=== PATIENT | male | born 1975 | race Caucasian/White ===

== ENCOUNTER 2024-07-19 10:23 | Emergency (ER) | payer BC ==
--- OUTSIDE RECORDS SUMMARY | 2024-07-19 10:27 | XMS REPORT | Continuity of Care Document ---
Author Name Unknown Address [address] [facility]. [address] [place] [address] [facility] thconnect Address [address] [facility] [address] [place] [address] Care Team Providers Care Stripper Latex Name Role Phone Juan David FREIGHT CLERK, Susannah Attending Clinician Unavailab tomas Fall FREIGHT CLERK, Susannah Admitting Clinician Ag marin Payers Payer Name Policy Type Policy Number Effective Date Expirati on Date Source [facility] 53 [id number] 2022 00:00:00 [facility] Problems Condition Name Condition Details Condition Category Status Onset Date Resolution Date Last Treatment Date Treating Clinician Comments Source 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 Ordering Clinician Indication Dosage Frequency Signature (SIG) Comments Components Source Tadalafil 5 MG Tadalafil 5 MG 01-18 00:00: 00 No 1{table t_as_ne eded} QD Tadalafil 5 MG Testosteron e Cypionate 100 MG/ML Testosteron e Cypionate 100 MG/ML No Testostero ne Cypionate 100 MG/ML Vital Signs Vital Name Observation Time Observation Value Comments S ource height 2024-01-19 08:30:00 72 [in_i] [facility] heart rate 2024-01-19 08:30:00 75 /min [facility] bmi 2024-01-19 08:30:00 34.23 kg/m2 [facility] respiratory rate 2024-01-19 08:30:00 18 /min [facility] oximetry 2024-01-19 08:30:00 93 % [facility] blood pressure systolic 2024-01-19 08:30:00 128 mm[Hg] [facility] blood pressure diastolic 2024-01-19 08:30:00 87 mm[Hg] [facility] weight 2024-01-19 08:30:00 252.4 [lb_av] [facility] En[facility]ters Start Date/Time End Date/Time Encounter Type Admission Type Attending Clinicians [facility] Facility Care Department Encounter ID Source 2024-01-19 08:32:01 Outpatient Juan David TAM, Susannah BPNET BPNET [id number] [facility] 2024-01-19 00:00:00 2024-01-19 00:00:00 Office Visit, Jone PtRonal, Level 4 BPNET BPNET [id number] [facility]
[2024-07-19] MEDS ORDERED: ONDANSETRON 4 MG/2 ML VIAL ONE (11:23)
[2024-07-19] MEDS ORDERED: NA CHLORIDE 0.9% 1,000 ML ONE ×2 (11:23→12:21)
[2024-07-19] MEDS ORDERED: MORPHINE 4 MG/ML SYR ONE ×2 (11:23→12:21)
[2024-07-19 11:36] LABS: Absolute Eosinophils 0.1 K/uL (0-0.5); Absolute Lymphocytes (CBC) 1.2 K/uL (0.7-4.9); Absolute Monocytes 0.5 K/uL (0.1-1.3); Absolute Neutrophil 4.4 K/uL (1.8-8.0); Basophils % 0.6 % (0-1.3); Eosinophils % 1.5 % (0-4.4); Hematocrit 50.9 % (39.6-49.0); Hemoglobin 17.8 g/dL (13.6-17.9); Lymphocytes % 19.8 % (15.3-44.8); MCH 31.6 pg (27.0-35.0); MPV 7.6 fL (7.6-11.3); Monocytes % 7.6 % (3.3-12.3); Neutrophils % 70.5 % (41.7-73.7); Nucleated Red Blood Cells % 0.1 % (0-0); Platelets 249 thou/uL (152-406); RBC Red Blood Cell Count 5.65 M/uL (4.33-5.43)
[2024-07-19 11:37] LABS: Specific Gravity 1.014 (1.005-1.030); Sqamous Epithelial <5 /HPF (None Seen); Urine Bacteria None Seen /HPF (<20); Urine Bilirubin NEGATIVE (Negative); Urine Blood 1+ (Negative); Urine Clarity Extremely Turbid (Clear); Urine Color Light-Yellow (Yellow); Urine Culture Reflex Order NOT NEEDED; Urine Glucose NEGATIVE (Negative); Urine Ketones NEGATIVE (Negative); Urine Microscopic Reflex YN ORDER UMIC; Urine Nitrite NEGATIVE (Negative); Urine Protein NEGATIVE (Negative); Urine RBC 21-50 /HPF (None Seen); Urine Urobilinogen Normal (Normal); Urine WBC <5 /HPF (<5)
--- NOTE | 2024-07-19 11:42 | RAD REPORT ---
EXAMINATION: CT ABDOMEN AND PELVIS WITH CONTRAST CLINICAL INDICATION: ABD PAIN TECHNIQUE: CT abdomen and pelvis was performed, after the administration of IV contrast, as per [facility] protocol. Axial, sagittal and coronal reconstructions were obtained. One or more of the following dose reduction techniques were used: Automated exposure control, adjustment of the mA and k V according to patient size, and iterative reconstruction. Unless otherwise specified, incidental findings do not require dedicated imaging follow-up. COMPARISON: No prior exam. FINDINGS: LOWER CHEST: The visualized lung bases are clear. LIVER: Mild fatty liver is present. No focal lesion or biliary dilatation is seen. Grossly unremark able gallbladder. SPLEEN: Normal size. No focal lesion. PANCREAS: No mass, ductal dilation, or elie-pancreatic fluid. ADRENALS: Normal; no mass. KIDNEYS: There is a 5 mm stone proximal left ureter resulting in mild left hydronephrosis. Additional 2 mm stone superior calyx left kidney. GASTROINTESTINAL TRACT: No evidence of free air, significant intra-abdominal free fluid, bowel obstru ction or abscess. APPENDIX: Normal appendix. LYMPH NODES: No lymphadenopathy. MUSCULOSKELETAL: No acute or suspicious osseous abnormality. ADDITIONAL FINDINGS: None. IMPRESSION: 5 mm stone proximal left kidney resulting in mild left hydronephrosis. Additional 2 mm stone superior calyx left kidney.
[2024-07-19] MEDS ORDERED: KETOROLAC 30 MG/ML INJ ONE (11:52)
[2024-07-19 11:53] LABS: Albumin 3.9 g/dL (3.4-5.0); Anion Gap 7.4 mEq/L (5.0-15.0); Bilirubin Total 0.5 mg/dL (0.2-1.0); Globulin 3.9 g/dL (2.3-3.5); Potassium 4.4 mEq/L (3.5-5.1); Protein, Total 7.8 g/dL (6.4-8.2)
--- NOTE | 2024-07-19 14:44 | ER ---
Nurse's Notes [facility] Name: Jim Ballesteros Age: 49 yrs Sex: Male : 1975 Arrival Date: 07/19/2024 Time: 10:23 Bed 12 Private MD: Diagnosis: Calculus of kidney Presentation: 07/19 10:52 Chief complaint: Patient states: he started having left lower abdominal/flank pain that ap3 started last night. patient currently rates his pain as an 8/10 on the pain scale. patient denies any nausea or vomiting and reports normal bowel habits. Coronavirus screen: At this time, the client does not indicate any symptoms associated with coronavirus-19. Ebola Screen: No symptoms or risks identified at this time. Initial Sepsis Screen: Does the patient meet any 2 criteria? HR > 90 bpm. Does the patient have a suspected source of infection? No. Patient's initial sepsis screen is negative. Risk Assessment: Do you want to hurt yourself or someone else? Patient reports no desire to harm self or others. Onset of symptoms was July 18, 2024. 10:52 Method Of Arrival: Ambulatory ap3 10:52 Acuity: GUCCI 3 ap3 Triage Assessment: 10:55 General: Appears uncomfortable, Behavior is calm, cooperative, appropriate for age. ap3 Pain: Complains of pain in left lower quadrant Pain currently is 8 out of 10 on a pain scale. Neuro: Level of Consciousness is awake, alert, obeys commands, Oriented to person, place, time, situation, Appropriate for age. Cardiovascular: Patient's skin is warm and dry. Respiratory: Airway is patent Respiratory effort is even, unlabored, Respiratory pattern is regular, symmetrical. GI: Reports lower abdominal pain, gaseousness. Historical: - Allergies: 10:54 No Known Allergies; ap3 - Home Meds: 10:54 None [Active]; ap3 - PMHx: 10:54 None; ap3 - Immunization history:: Client reports having NOT received the Covid vaccine. Last tetanus immunization: not immunized Flu vaccine is not up to date. - Infectious Disease History:: Denies. - Social history:: Smoking status: Patient denies any tobacco usage or history of. Screenin:55 [facility] ED Fall Risk Assessment (Adult) History of falling in the last 3 months, ap3 including since admission No falls in past 3 months (0 pts) Confusion or Disorientation No (0 pts) Intoxicated or Sedated No (0 pts) Impaired Gait No (0 pts) Mobility Assist Device Used No (0 pt) Altered Elimination No (0 pt) Score/Fall Risk Level 0 - 2 = Low Risk Oriented to surroundings, Maintained a safe environment, Educated pt \T\ family on fall prevention, incl call for assistance when getting out of bed, Assessed \T\ reinforced patient's understanding of fall precautions, Hourly rounding (assess needs \T\ fall precautionary measures) done, Used ambulatory aids as needed (educated on \T\ assisted with), Used gait belt as appropriate. Abuse screen: Denies threats or abuse. Nutritional screening: No deficits noted. Tuberculosis screening: No symptoms or risk factors identified. Assessment: 11:54 General: Appears in no apparent distress. uncomfortable, Behavior is calm, cooperative, jl7 appropriate for age. Pain: Complains of pain in left lower quadrant Pain currently is 8 out of 10 on a pain scale. at worst was 10 out of 10 on a pain scale. Quality of pain is described as sharp, Pain began 1 day ago. Is continuous. Neuro: Level of Consciousness is awake, alert, obeys commands, Oriented to person, place, time, situation. Cardiovascular: Patient's skin is warm and dry. Respiratory: Airway is patent Respiratory effort is even, unlabored, Respiratory pattern is regular, symmetrical. GI: Abdomen is round Bowel sounds present X 4 quads. Abd is soft Patient currently denies diarrhea, nausea, vomiting. : Denies burning with urination, pain with urination. Derm: Skin is pink, warm \T\ dry. 13:06 Reassessment: Patient appears in no apparent distress at this time. Patient and/or jl7 family updated on plan of care and expected duration. Pain level reassessed. Patient is alert, oriented x 3, equal unlabored respirations, skin warm/dry/pink. reports pain 5/10 at this time Patient states symptoms have improved. Vital Signs: 10:52 BP 151 / 96; Pulse 116; Resp 18; Temp 98.6(O); Pulse Ox 98% on R/A; Weight 113.4 kg; ap3 Height 6 ft. 0 in. ; Pain 8/10; 11:59 Pain 7/10; jl7 13:05 BP 130 / 89; Pulse 79; Resp 15; Pulse Ox 98% ; Pain 5/10; jl7 10:52 Body Mass Index 33.91 (113.40 kg, 182.88 cm) ap3 10:52 Pain Scale: Adult ap3 11:59 Pain Scale: Adult jl7 13:05 Pain Scale: Adult jl7 ED Course: 10:29 Patient arrived in ED. sj2 10:31 Shiv Aranda FNP-C is [facility]. ss 10:31 Payam Nelson MD is Attending Physician. ss 10:54 Triage completed. ap3 10:56 Arm band placed on left wrist. ap3 11:20 Parminder Sethi, JAZMINE is Primary Nurse. jl7 11:23 CBC with Diff Sent. bc6 11:23 CMP Sent. bc6 11:23 Lipase Sent. bc6 11:23 Initial lab(s) drawn, by me, sent to lab. Inserted saline lock: 20 gauge in right bc6 antecubital area, using aseptic technique. Blood collected. Flushed with 10 mL NS. 11:32 CT Abd/Pelvis - IV Contrast Only In Process Unspecified. EDMS 11:54 Patient has correct armband on for positive identification. Provided Education on: use jl7 of call jack. 14:55 No provider procedures requiring assistance completed. IV discontinued, intact, jl7 bleeding controlled, No redness/swelling at site. Pressure dressing applied. Administered Medications: 11:48 Drug: Ondansetron IVP 4 mg IVP once; over 2 minutes Route: IVP; Site: right antecubital;jl7 11:59 Follow up: Response: No adverse reaction jl7 11:48 Drug: morphine IVP or IV 4 mg IVP once over 4 mins Route: IVP; Infused Over: 4 mins; jl7 Site: right antecubital; 11:59 Follow up: Pain 7/10 Adult; Response: No adverse reaction; Pain is decreased jl7 11:48 Drug: NS 0.9% IV 1000 ml IV at 1 bolus Per protocol; to be given as a bolus over 60 jl7 minutes Route: IV; Rate: 1 bolus; Site: right antecubital; 12:45 Follow up: Response: No adverse reaction; IV Status: Completed infusion; IV Intake: jl7 1000ml 11:59 Drug: Ketorolac IVP 30 mg IVP once Route: IVP; Site: right antecubital; jl7 12:15 Follow up: Response: No adverse reaction; Pain is decreased jl7 12:30 Drug: NS 0.9% IV 1000 ml IV at 1000 ml once; to be given as a bolus over 60 minutes jl7 Route: IV; Rate: 1000 ml; Site: left antecubital; 13:30 Follow up: Response: No adverse reaction; IV Status: Completed infusion; IV Intake: jl7 1000ml 12:30 Drug: morphine IVP or IV 4 mg IVP once over 4 mins Route: IVP; Infused Over: 4 mins; jl7 Site: left antecubital; 13:00 Follow up: Response: No adverse reaction; Pain is decreased jl7 Medication: 11:54 VIS not applicable for this client. jl7 Intake: 12:45 IV: 1000ml; Total: 1000ml. jl7 13:30 IV: 1000ml; Total: 2000ml. jl7 Outcome: 14:43 Discharge ordered by . ana 14:55 Discharged to home ambulatory, jl7 14:55 Condition: stable 14:55 Discharge instructions given to patient, Instructed on discharge instructions, follow up and referral plans. medication usage, Demonstrated understanding of instructions, follow-up care, medications, Prescriptions given X 3, 14:55 Patient left the ED. jl7 Signatures: Dispatcher [employer] EDMS Maddison Everett RN RN ss Leal, Jahala, RN RN jl7 Jessie Pettit RN RN ap3 Dennise German6 Shanda Mcginnis 2 Shiv Aranda, HEALTH COMMUNICATIONS SPECIALIST-C HEALTH COMMUNICATIONS SPECIALIST-[facility]5
--- NOTE | 2024-07-19 14:44 | EDPHYS ---
Physician Documentation [facility] Name: Jim Ballesteros Age: 49 yrs Sex: Male : 1975 Arrival Date: 07/19/2024 Time: 10:23 Bed 12 Private MD: ED Physician Payam Nelson HPI: 07/19 10:54 This 49 yrs old Male presents to ER via Unassigned with complaints of Flank dr5 Pain, Abdominal Pain. 10:54 Patient is a 49-year-old male with no past medical history coming in with left lower dr5 quadrant abdominal pain radiating to the left flank. Patient reports he has a history of kidney stones and this feels nothing like it. Patient reports having a bowel movement earlier today that was normal. Patient is voiding without difficulty. Patient denies fever. Patient reports the pain has happened a week ago that resolved after 30 minutes. Patient states that this episode started last night.. Historical: - Allergies: 10:54 No Known Allergies; ap3 - Home Meds: 10:54 None [Active]; ap3 - PMHx: 10:54 None; ap3 - Immunization history:: Client reports having NOT received the Covid vaccine. Last tetanus immunization: not immunized Flu vaccine is not up to date. - Infectious Disease History:: Denies. - Social history:: Smoking status: Patient denies any tobacco usage or history of. ROS: 10:54 Constitutional: as per hpi dr5 Exam: 10:54 Constitutional: This is a well developed, well nourished patient who is awake, alert, dr5 and in no acute distress. Head/Face: Normocephalic, atraumatic. Eyes: Pupils equal round and reactive to light, extra-ocular motions intact. Lids and lashes normal. Conjunctiva and sclera are non-icteric and not injected. Cornea within normal limits. Periorbital areas with no swelling, redness, or edema. Neck: Trachea midline, no thyromegaly or masses palpated, and no cervical lymphadenopathy. Supple, full range of motion without nuchal rigidity, or vertebral point tenderness. No Meningismus. Chest/axilla: Normal chest wall appearance and motion. Nontender with no deformity. No lesions are appreciated. Cardiovascular: Regular rate and rhythm with a normal S1 and S2. Normal PMI, no JVD. No pulse deficits. Respiratory: Lungs have equal breath sounds bilaterally, clear to auscultation. No rales, rhonchi or wheezes noted. No increased work of breathing, no retractions or nasal flaring. 10:54 Back: No spinal tenderness. No costovertebral tenderness. Full range of motion. Skin: Warm, dry with normal turgor. Normal color with no rashes, no lesions, and no evidence of cellulitis. Neuro: Awake and alert, GCS 15, oriented to person, place, time, and situation. Cranial nerves II-XII grossly intact. Motor strength 5/5 in all extremities. Sensory grossly intact. Cerebellar exam normal. Normal gait. 10:54 Abdomen/GI: Inspection: abdomen appears normal, obese Bowel sounds: normal, Palpation: moderate abdominal tenderness, in the left lower quadrant, Vital Signs: 10:52 BP 151 / 96; Pulse 116; Resp 18; Temp 98.6(O); Pulse Ox 98% on R/A; Weight 113.4 kg; ap3 Height 6 ft. 0 in. ; Pain 8/10; 11:59 Pain 7/10; jl7 13:05 BP 130 / 89; Pulse 79; Resp 15; Pulse Ox 98% ; Pain 5/10; jl7 10:52 Body Mass Index 33.91 (113.40 kg, 182.88 cm) ap3 10:52 Pain Scale: Adult ap3 11:59 Pain Scale: Adult jl7 13:05 Pain Scale: Adult jl7 MDM: 10:34 Medical Screening Exam initiated dr5 14:19 ED course: Patient is feeling much better. Will allow patient to finish 2L of fluid and dr5 d/c him with Flomax and pain medications. Patient will also be instructed to void into a strainer to catch stone to take to Urology.. 14:47 Differential diagnosis: nephrolithiasis, pyelonephritis, UTI. Data reviewed: vital dr5 signs, nurses notes. I considered the following discharge prescriptions or medication management in the emergency department Medications were administered in the Emergency Department. See MAR. Care significantly affected by the following Social Determinants of Health: Poor access to healthcare and/or lack of insurance, Poor access to transportation, Problems related to employment. Counseling: I had a detailed discussion with the patient and/or guardian regarding the historical points, exam findings, and any diagnostic results supporting the discharge/admit diagnosis, the presence of at least one elevated blood pressure reading (>120/80) during this emergency department visit, lab results, radiology results, the need for outpatient follow up, for definitive care, a family practitioner, a urologist, to return to the emergency department if symptoms worsen or persist or if there are any questions or concerns that arise at home. Medication response: morphine markedly relieved the patient's pain. Symptoms have improved, Response to treatment: the patient's symptoms have markedly improved after treatment. ED course: Patient is feeling much better. Strainer given to patient. Will cover for UTI with Vantin. Recommended patient follow-up with urology this week. I printed out labs and CT results and stapled them to give to urologist and placed him in his packet.. ED course: All questions answered. 07/19 10:54 Order name: CBC with Diff; Complete Time: :07/19 10:54 Order name: CMP; Complete Time: :07/19 10:54 Order name: Lipase; Complete Time: :07/19 10:54 Order name: Urinalysis w/ reflexes; Complete Time: :07/19 10:54 Order name: CT Abd/Pelvis - IV Contrast Only; Complete Time: :07/19 10:54 Order name: IV Saline Lock; Complete Time: :07/19 10:54 Order name: Labs collected and sent; Complete Time: 11: dr5 Administered Medications: 11:48 Drug: Ondansetron IVP 4 mg IVP once; over 2 minutes Route: IVP; Site: right antecubital;jl7 11:59 Follow up: Response: No adverse reaction jl7 11:48 Drug: morphine IVP or IV 4 mg IVP once over 4 mins Route: IVP; Infused Over: 4 mins; jl7 Site: right antecubital; 11:59 Follow up: Pain 7/10 Adult; Response: No adverse reaction; Pain is decreased jl7 11:48 Drug: NS 0.9% IV 1000 ml IV at 1 bolus Per protocol; to be given as a bolus over 60 jl7 minutes Route: IV; Rate: 1 bolus; Site: right antecubital; 12:45 Follow up: Response: No adverse reaction; IV Status: Completed infusion; IV Intake: jl7 1000ml 11:59 Drug: Ketorolac IVP 30 mg IVP once Route: IVP; Site: right antecubital; jl7 12:15 Follow up: Response: No adverse reaction; Pain is decreased jl7 12:30 Drug: NS 0.9% IV 1000 ml IV at 1000 ml once; to be given as a bolus over 60 minutes jl7 Route: IV; Rate: 1000 ml; Site: left antecubital; 13:30 Follow up: Response: No adverse reaction; IV Status: Completed infusion; IV Intake: jl7 1000ml 12:30 Drug: morphine IVP or IV 4 mg IVP once over 4 mins Route: IVP; Infused Over: 4 mins; jl7 Site: left antecubital; 13:00 Follow up: Response: No adverse reaction; Pain is decreased jl7 Disposition: 07/20 14:18 Co-signature as Attending Physician, Payam Nelson MD I agree with the assessment and hernan plan of care. Disposition Summary: 07/19/24 14:43 Discharge Ordered Notes: Location: Home dr5 Condition: Stable dr5 Diagnosis - Calculus of kidney dr5 Followup: dr5 - With: Emergency Department - When: As needed - Reason: Worsening of condition Followup: dr5 - With: Private Physician - When: 1 - 2 days - Reason: Recheck today's complaints, Continuance of care, Re-evaluation by your physician Discharge Instructions: - Discharge Summary Sheet dr5 - Kidney Stones dr5 Forms: - Medication Reconciliation Form dr5 - Prescription Opioid Use dr5 - Patient Portal Instructions dr5 - Leadership Thank You Letter dr5 Prescriptions: - tamsulosin 0.4 mg Oral capsule - take 1 capsule ORAL route daily for 28 days; 28 capsule; Refills: 0, Product dr5 Selection Permitted - Tramadol 50 mg Oral Tablet - take 1 tablet ORAL route every 8 hours as needed; 12 tablet; Refills: 0, dr5 Product Selection Permitted - cefpodoxime 200 mg Oral tablet - take 1 tablet ORAL route every 12 hours for 7 days with food; 14 tablet; dr5 Refills: 0, Product Selection Permitted Signatures: Dispatcher [employer] Payam Aceves MD MD cha Leal, Jahala, RN RN jl7 Jessie Pettit RN RN [email or web address] Shiv Aranda, SAVITA-C CHIEF MEDICAL OFFICER-Cdr5
[2024-07-19 17:31] VITALS: TEMP 98.6; O2SAT 98
[2024-07-19 17:42] VITALS: BP 130/89
== END 2024-07-19 14:55 | disposition home or self-care (01) ==
LOC: ER 10:23
DX: N20.0 Calculus of kidney (principal)
CPT/HCPCS: 85025; 81001; 36415; 83690; 80053; 74177; Q9967; J2405; J7030 ×2; 99284

== ENCOUNTER 2024-07-20 03:22 | Emergency (ER) | payer BC ==
[2024-07-20] MEDS ORDERED: ONDANSETRON 4 MG/2 ML VIAL ONE (03:54)
[2024-07-20] MEDS ORDERED: HYDROMORPHONE HCL 1 MG/ML INJ ONE ×2 (03:54→04:45)
[2024-07-20 04:13] LABS: Absolute Eosinophils 0.1 K/uL (0-0.5)
[2024-07-20 04:16] LABS: Absolute Monocytes 0.6 K/uL (0.1-1.3); Absolute Neutrophil 6.7 K/uL (1.8-8.0); Basophils % 0.3 % (0-1.3); Eosinophils % 0.6 % (0-4.4); Hematocrit 46.2 % (39.6-49.0); Hemoglobin 15.8 g/dL (13.6-17.9); Lymphocytes % 11.6 % (15.3-44.8); MCH 31.3 pg (27.0-35.0); MCHC 34.1 g/dL (32.0-36.0); MCV 91.7 fL (80-100); MPV 7.6 fL (7.6-11.3); Monocytes % 6.7 % (3.3-12.3); Neutrophils % 80.8 % (41.7-73.7); Platelets 227 thou/uL (152-406); RBC Red Blood Cell Count 5.03 M/uL (4.33-5.43); Red Cell Distribution Width 13.3 % (12.1-15.2)
[2024-07-20 04:30] LABS: Albumin 3.4 g/dL (3.4-5.0); Bilirubin Total 0.3 mg/dL (0.2-1.0); Globulin 3.4 g/dL (2.3-3.5); Protein, Total 6.8 g/dL (6.4-8.2)
--- NOTE | 2024-07-20 04:39 | EDPHYS ---
Physician Documentation [facility] Name: Jim Ballesteros Age: 49 yrs Sex: Male : 1975 Arrival Date: 07/20/2024 Time: 03:22 Bed 5 Private MD: ED Physician Siva Zuluaga HPI: 07/20 03:53 This 49 yrs old Male presents to ER via Ambulatory with complaints of Abdominal Pain, sp3 Low Back Pain, Possible Kidney Stone. 03:53 49-year-old male with no past medical history with new kidney stone 6.3 mm proximal sp3 left ureter diagnosed yesterday and presents to the ED with recurrent abdominal pain. Patient took his tramadol but he states it had "worn off" and he came straight from work. Patient lives in [place] but is here locally working. He denies any other symptoms including fever, vomiting, or upper abdominal pain. Remainder of ROS negative. Patient is here strictly for pain control.. Historical: - Allergies: 03:42 No Known Allergies; vc1 - Home Meds: 03:42 None [Active]; vc1 - PMHx: 03:42 None; vc1 - PSHx: 03:42 None; vc1 - Immunization history:: Client reports having NOT received the Covid vaccine. Flu vaccine is not up to date. - Infectious Disease History:: Denies. - Social history:: Smoking status: Patient denies any tobacco usage or history of. ROS: 03:53 Constitutional: Negative for fever, chills, and weight loss, Eyes: Negative for injury, sp3 pain, redness, and discharge, Neck: Negative for injury, pain, and swelling, Cardiovascular: Negative for chest pain, palpitations, and edema, Respiratory: Negative for shortness of breath, cough, wheezing, and pleuritic chest pain, MS/Extremity: Negative for injury and deformity, Skin: Negative for injury, rash, and discoloration, Neuro: Negative for headache, weakness, numbness, tingling, and seizure, Psych: Negative for depression, anxiety, suicide ideation, homicidal ideation, and hallucinations, Allergy/Immunology: Negative for hives, rash, and allergies, Endocrine: Negative for neck swelling, polydipsia, polyuria, polyphagia, and marked weight changes, 03:53 All other systems are negative, Exam: 03:54 Constitutional: This is a well developed, well nourished patient who is awake, alert, sp3 and in no acute distress. Head/Face: Normocephalic, atraumatic. Eyes: Pupils equal round and reactive to light, extra-ocular motions intact. Lids and lashes normal. Conjunctiva and sclera are non-icteric and not injected. Cornea within normal limits. Periorbital areas with no swelling, redness, or edema. Neck: Trachea midline, no thyromegaly or masses palpated, and no cervical lymphadenopathy. Supple, full range of motion without nuchal rigidity, or vertebral point tenderness. No Meningismus. Chest/axilla: Normal chest wall appearance and motion. Nontender with no deformity. No lesions are appreciated. Cardiovascular: Regular rate and rhythm with a normal S1 and S2. No gallops, murmurs, or rubs. Normal PMI, no JVD. No pulse deficits. Respiratory: Lungs have equal breath sounds bilaterally, clear to auscultation and percussion. No rales, rhonchi or wheezes noted. No increased work of breathing, no retractions or nasal flaring. Skin: Warm, dry with normal turgor. Normal color with no rashes, no lesions, and no evidence of cellulitis. MS/ Extremity: Pulses equal, no cyanosis. Neurovascular intact. Full, normal range of motion. Neuro: Awake and alert, GCS 15, oriented to person, place, time, and situation. Cranial nerves II-XII grossly intact. Motor strength 5/5 in all extremities. Sensory grossly intact. Cerebellar exam normal. Normal gait. Psych: Awake, alert, with orientation to person, place and time. Behavior, mood, and affect are within normal limits. 03:54 Abdomen/GI: Left lower quadrant abdominal pain to palpation without peritoneal signs, rebound or guarding. Left CVA tenderness also noted., Vital Signs: 03:39 BP 131 / 81; Pulse 82; Resp 16; Temp 98.4; Pulse Ox 94% ; Weight 113.4 kg; Height 6 ft. vc1 0 in. ; Pain 8/10; 04:33 BP 130 / 74; Pulse 89; Resp 18; Pulse Ox 95% ; cp4 03:39 Body Mass Index 33.91 (113.40 kg, 182.88 cm) vc1 03:39 Pain Scale: Adult vc1 MDM: 03:32 Medical Screening Exam initiated sp3 03:54 Data reviewed: vital signs, nurses notes, old medical records, Creatinine yesterday 1.[address] demonstrates 6.3 mm stone left proximal ureter with mild left hydronephrosis. lab test result(s). ED course: 49-year-old male with continued renal colic from 6.3 mm stone left proximal ureter. Patient has a ride at this point and we will treat with Dilaudid and Zofran IV and recheck CBC and metabolic panel since creatinine was mildly elevated yesterday. Follow-up urology as needed.. 04:38 ED course: Patient improved. We will give 1 additional milligram Dilaudid. Creatinine sp3 down to 1.3. Follow-up with urology.. 07/20 03:51 Order name: CBC with Diff; Complete Time: 04:37 sp3 07/20 03:51 Order name: CMP; Complete Time: 04:37 sp3 07/20 03:51 Order name: IV Saline Lock; Complete Time: 03:52 sp3 07/20 03:51 Order name: Labs collected and sent; Complete Time: 03:52 sp3 Administered Medications: 03:59 Drug: HYDROmorphone IVP 1 mg IVP once Route: IVP; Site: right antecubital; cp4 04:47 Follow up: Response: No adverse reaction; Pain is decreased cp4 03:59 Drug: Ondansetron IVP 4 mg IVP once; over 2 minutes Route: IVP; Site: right antecubital;cp4 04:47 Follow up: Response: No adverse reaction cp4 04:47 Drug: HYDROmorphone IVP 1 mg IVP once Route: IVP; Site: right antecubital; cp4 05:01 Follow up: Response: No adverse reaction; Pain is decreased cp4 Disposition Summary: 07/20/24 04:39 Discharge Ordered Notes: Location: Home sp3 Condition: Stable sp3 Diagnosis - 6.3 mm ureterolithiasis left side, kidney stone, renal colic sp3 Followup: sp3 - With: Mata Page MD - When: Upon discharge from the Emergency Department - Reason: Recheck today's complaints Discharge Instructions: - Discharge Summary Sheet sp3 - Kidney Stones sp3 Forms: - Medication Reconciliation Form sp3 - Antibiotic Education sp3 - Prescription Opioid Use sp3 - Patient Portal Instructions sp3 - Leadership Thank You Letter sp3 Prescriptions: - Diclofenac Sodium 75 mg Oral Tablet Sustained Release - take 1 tablet ORAL route 2 times per day; 30 tablet; Refills: 0, Product sp3 Selection Permitted Signatures: Dispatcher [employer] EDMS Siva Zuluaga MD MD sp3 Alissa Burgos RN RN vc1 Connie Mckinley cp4 Corrections: (The following items were deleted from the chart) 03:52 03:52 CBC+H.LAB.BRZ ordered. EDMS EDMS 03:52 03:52 COMPREHENSIVE METABOLIC PANEL+C.LAB.BRZ ordered. EDMS EDMS
--- NOTE | 2024-07-20 04:39 | ER ---
Nurse's Notes [facility] Name: Jim Ballesteros Age: 49 yrs Sex: Male : 1975 Arrival Date: 07/20/2024 Time: 03:22 Bed 5 Private MD: Diagnosis: 6.3 mm ureterolithiasis left side, kidney stone, renal colic Presentation: 07/20 03:39 Chief complaint: Patient states: Here yesterday for a kidney stone. I went to work last vc1 night and couldn't take my medicine with me to work and the pain came back with a vengeance. Coronavirus screen: Client denies travel out of the [place] in the last 14 days. At this time, the client does not indicate any symptoms associated with coronavirus-19. Ebola Screen: Patient negative for fever greater than or equal to 101.5 degrees Fahrenheit, and additional compatible Ebola Virus Disease symptoms Patient denies exposure to infectious person. Patient denies travel to an Ebola-affected area in the 21 days before illness onset. No symptoms or risks identified at this time. Initial Sepsis Screen: Does the patient meet any 2 criteria? No. Patient's initial sepsis screen is negative. Does the patient have a suspected source of infection? No. Patient's initial sepsis screen is negative. Risk Assessment: Do you want to hurt yourself or someone else? Patient reports no desire to harm self or others. Onset of symptoms was July 17, 2024. 03:39 Method Of Arrival: Ambulatory vc1 03:39 Acuity: GUCCI 3 vc1 Triage Assessment: 03:45 General: Appears in no apparent distress. uncomfortable, Behavior is calm, cooperative, vc1 appropriate for age. Pain: Complains of pain in left lower quadrant Pain does not radiate. Pain currently is 8 out of 10 on a pain scale. Quality of pain is described as sharp, Pain began suddenly, Is continuous. EENT: No deficits noted. No signs and/or symptoms were reported regarding the EENT system. Neuro: Level of Consciousness is awake, alert, obeys commands, Oriented to person, place, time, situation, Appropriate for age. Cardiovascular: Capillary refill < 3 seconds Patient's skin is warm and dry. Respiratory: Airway is patent Respiratory effort is even, unlabored, Respiratory pattern is regular, symmetrical. GI: No deficits noted. No signs and/or symptoms were reported involving the gastrointestinal system. : Reports pain in left lower quadrant(s) in lower back. Derm: Skin is intact, is healthy with good turgor, Skin is dry, Skin is normal, Skin temperature is warm. Musculoskeletal: Circulation, motion, and sensation intact. Range of motion: intact in all extremities. Historical: - Allergies: 03:42 No Known Allergies; vc1 - Home Meds: 03:42 None [Active]; vc1 - PMHx: 03:42 None; vc1 - PSHx: 03:42 None; vc1 - Immunization history:: Client reports having NOT received the Covid vaccine. Flu vaccine is not up to date. - Infectious Disease History:: Denies. - Social history:: Smoking status: Patient denies any tobacco usage or history of. Screenin:42 [facility] ED Fall Risk Assessment (Adult) History of falling in the last 3 months, vc1 including since admission No falls in past 3 months (0 pts) Confusion or Disorientation No (0 pts) Intoxicated or Sedated No (0 pts) Impaired Gait No (0 pts) Mobility Assist Device Used No (0 pt) Altered Elimination No (0 pt) Score/Fall Risk Level 0 - 2 = Low Risk Oriented to surroundings, Maintained a safe environment, Educated pt \T\ family on fall prevention, incl call for assistance when getting out of bed, Hourly rounding (assess needs \T\ fall precautionary measures) done. Abuse screen: Denies threats or abuse. Nutritional screening: No deficits noted. Tuberculosis screening: No symptoms or risk factors identified. Assessment: 03:43 General: Appears in no apparent distress. uncomfortable, Behavior is calm, cooperative, cp4 appropriate for age. Pain: Complains of pain in abdomen and pelvis Pain does not radiate. Pain currently is 10 out of 10 on a pain scale. Neuro: Level of Consciousness is awake, alert, obeys commands, Oriented to person, place, time, situation. Cardiovascular: Patient's skin is warm and dry. Respiratory: Airway is patent Respiratory effort is even, unlabored. GI: Abdomen is round non-distended, Bowel sounds present X 4 quads. Abd is soft and non tender X 4 quads. : No signs and/or symptoms were reported regarding the genitourinary system. EENT: No signs and/or symptoms were reported regarding the EENT system. Derm: No signs and/or symptoms reported regarding the dermatologic system. Musculoskeletal: No signs and/or symptoms reported regarding the musculoskeletal system. 04:33 Reassessment: Patient appears in no apparent distress at this time. Patient and/or cp4 family updated on plan of care and expected duration. Pain level reassessed. Patient is alert, oriented x 3, equal unlabored respirations, skin warm/dry/pink. Vital Signs: 03:39 BP 131 / 81; Pulse 82; Resp 16; Temp 98.4; Pulse Ox 94% ; Weight 113.4 kg; Height 6 ft. vc1 0 in. ; Pain 8/10; 04:33 BP 130 / 74; Pulse 89; Resp 18; Pulse Ox 95% ; cp4 03:39 Body Mass Index 33.91 (113.40 kg, 182.88 cm) vc1 03:39 Pain Scale: Adult vc1 ED Course: 03:27 Patient arrived in ED. gm2 03:32 Siva Zuluaga MD is Attending Physician. sp3 03:42 Triage completed. vc1 03:42 Arm band placed on right wrist. vc1 03:43 Connie Mckinley is Primary Nurse. cp4 03:43 Patient has correct armband on for positive identification. Bed in low position. Call vc1 light in reach. Pulse ox on. NIBP on. 03:43 No provider procedures requiring assistance completed. Inserted saline lock: 20 gauge cp4 in right antecubital area, using aseptic technique. Blood collected. Flushed with 10 mL NS. 03:50 Provided Education on: call light. vc1 04:39 Mata Page MD is Referral Physician. sp3 05:01 intact, bleeding controlled, No redness/swelling at site. Pressure dressing applied. cp4 Administered Medications: 03:59 Drug: HYDROmorphone IVP 1 mg IVP once Route: IVP; Site: right antecubital; cp4 04:47 Follow up: Response: No adverse reaction; Pain is decreased cp4 03:59 Drug: Ondansetron IVP 4 mg IVP once; over 2 minutes Route: IVP; Site: right antecubital;cp4 04:47 Follow up: Response: No adverse reaction cp4 04:47 Drug: HYDROmorphone IVP 1 mg IVP once Route: IVP; Site: right antecubital; cp4 05:01 Follow up: Response: No adverse reaction; Pain is decreased cp4 Medication: 03:43 VIS not applicable for this client. vc1 Outcome: 04:39 Discharge ordered by . sp3 05:01 Discharged to home ambulatory, cp4 05:01 Condition: stable 05:01 Discharge instructions given to patient, Instructed on discharge instructions, follow up and referral plans. medication usage, Demonstrated understanding of instructions, follow-up care, medications, Prescriptions given X 1, 05:02 Patient left the ED. cp4 Signatures: Siva Zuluaga MD MD sp3 Alissa Burgos RN RN vc1 Connie Mckinley cp4 Lena Faith 2
[2024-07-20 09:53] VITALS: TEMP 98.4
[2024-07-20 09:59] VITALS: BP 130/74; O2SAT 95
--- OUTSIDE RECORDS SUMMARY | 2024-07-21 02:18 | XMS REPORT | Continuity of Care Document ---
Author Name Unknown Address [address] [place] [address] [facility] thconnect Address 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 ED (erectile dysfunctio n) of non-organi c origin Problem [facility] Social History Social Habit Start Date Stop Date Quantity Comments Source History of Tobacco Use [facility] Sex Assigned At [facility] Smoking Status Start Date Stop Date Source Never Smoker [facility] Medications Ordered Medication Name [...] Network respiratory rate 2024-01-19 08:30:00 18 /min [facility] oximetry 2024-01-19 08:30:00 93 % [facility] blood pressure systolic 2024-01-19 08:30:00 128 mm[Hg] [facility] blood pressure diastolic 2024-01-19 08:30:00 87 mm[Hg] [facility] weight 2024-01-19 08:30:00 252.4 [lb_av] [facility] Encounters Start Date/Time End Date/Time Encounter Type Admission Type Attending [facility] Facility Care Department Encounter ID Source 2024-01-19 08:32:01 Outpatient Juan David TAM, Susannah BPNET BPNET [id number] [facility] 2024-01-19 00:00:00 2024-01-19 00:00:00 Office Visit, New Pt., Level 4 [facility] BPNET [id number] [facility]
== END 2024-07-20 05:02 | disposition home or self-care (01) ==
LOC: ER 03:22
DX: N20.2 Calculus of kidney with calculus of ureter (principal); N23 Unspecified renal colic
CPT/HCPCS: 85025; 36415; 80053; 96375; 96374; 99284; J1171 ×2; J2405

== ENCOUNTER 2024-07-30 07:21 | Emergency (ER) | payer BC ==
--- OUTSIDE RECORDS SUMMARY | 2024-07-30 07:24 | XMS REPORT | Continuity of Care Document ---
Author Name Unknown Address [address] [place] [address] [facility] thconnect Address 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 ED (erectile dysfunctio n) of non-organi c origin Problem [facility] Social History Social Habit Start Date Stop Date Quantity Comments Source History of Tobacco Use [facility] Sex Assigned At [facility] Smoking Status Start Date Stop Date Source Never Smoker [facility] Medications Ordered Medication Name [...] Network respiratory rate 2024-01-19 08:30:00 18 /min [facility] oximetry 2024-01-19 08:30:00 93 % [facility] blood pressure systolic 2024-01-19 08:30:00 128 mm[Hg] [facility] blood pressure diastolic 2024-01-19 08:30:00 87 mm[Hg] [facility] weight 2024-01-19 08:30:00 252.4 [lb_av] [facility] Encounters Start Date/Time End Date/Time Encounter Type Admission Type Attending [facility] Facility Care Department Encounter ID Source 2024-01-19 08:32:01 Outpatient Juan David TAM, Susannah BPNET BPNET [id number] [facility] 2024-01-19 00:00:00 2024-01-19 00:00:00 Office Visit, New Pt., Level 4 [facility] BPNET [id number] [facility]
[2024-07-30] MEDS ORDERED: ONDANSETRON 4 MG/2 ML VIAL ONE (08:23)
[2024-07-30] MEDS ORDERED: KETOROLAC 30 MG/ML INJ ONE (08:24)
[2024-07-30] MEDS ORDERED: MORPHINE 4 MG/ML SYR ONE (08:24)
--- NOTE | 2024-07-30 08:25 | RAD REPORT ---
EXAMINATION: CT ABDOMEN AND PELVIS WITHOUT CONTRAST CLINICAL INDICATION: Male, 49 years old.flank pain, hx of stone TECHNIQUE: CT abdomen and pelvis was performed, without IV contrast, as per department protocol. Axia l, sagittal and coronal reconstructions were obtained. One or more of the following dose reduction techniques were used: Automated exposure control, adjustment of the mA and/or kV according to the pat ient size, and/or iterative reconstruction. Unless otherwise specified, incidental findings do not require dedicated imaging follow-up. [id number]. IV CONTRAST: Not administered. COMPARISON: 07/19/2024 FINDINGS: The lack of intravenous contrast limits the sensitivity of this exam for evaluation of solid visceral organs, vascular structures, and retroperitoneum. LOWER CHEST: No acute process identified.No significant pericardial effusion. UPPER GI: No significant abnormality. LIVER: Hepatic steatosis, but otherwise unremarkable. GALLBLADDER/BILE DUCTS: No biliary ductal dilatation.? PANCREAS: No mass, ductal dilation, or elie-pancreatic fluid. SPLEEN: Unremarkable. ADRENALS: No adrenal masses. KIDNEYS AND URETERS: Mild left-sided hydroureteronephrosis. 7 mm stone at the left distal ureter just proximal to the UVJ has migrated distally compared with the prior CT. A 3 mm stone is present in the left upper pole kidney.Within the limitations of a noncontrast CT, no suspicious renal lesions. ABDOMINAL AORTA AND OTHER VESSELS: Normal caliber aorta and IVC. PERITONEUM: No abnormal free fluid. No free air. LYMPH NODES: No pathologic lymphadenopathy. ABDOMINAL WALL: Small fat containing umbilical hernia. Small fat-containing inguinal hernias. SMALL BOWEL/COLON: Small bowel has normal course and caliber. No colonic wall thickening or pericolon ic inflammatory changes.Normal appendix. URINARY BLADDER: Circumferential thickening which may be secondary to chronic bladder outlet obstruct ion. REPRODUCTIVE ORGANS: Mild prostatomegaly. MUSCULOSKELETAL: Multilevel degenerative changes in the spine. No acute fracture. ADDITIONAL FINDINGS: None. IMPRESSION: Mild left-sided hydroureteronephrosis with migration of the left ureter calculus identified on the CT. The stone, which measures 7 mm, is present in the left distal ureter just proximal to the UVJ.
[2024-07-30 08:38] LABS: Specific Gravity 1.009 (1.005-1.030); Sqamous Epithelial <5 /HPF (None Seen); Urine Bacteria None Seen /HPF (<20); Urine Bilirubin NEGATIVE (Negative); Urine Blood 2+ (Negative); Urine Clarity Clear (Clear); Urine Color Colorless (Yellow); Urine Culture Reflex Order NOT NEEDED; Urine Glucose NEGATIVE (Negative); Urine Ketones NEGATIVE (Negative); Urine Microscopic Reflex YN ORDER UMIC; Urine Mucus Slight /HPF (None Seen); Urine Nitrite NEGATIVE (Negative); Urine Protein NEGATIVE (Negative); Urine Urobilinogen Normal (Normal); Urine WBC <5 /HPF (<5); Urine pH 6.5 (5.0-7.0)
[2024-07-30 08:43] LABS: Albumin 3.7 g/dL (3.4-5.0); Anion Gap 4.5 mEq/L (5.0-15.0); Bilirubin Total 0.5 mg/dL (0.2-1.0); Globulin 3.7 g/dL (2.3-3.5); Potassium 4.5 mEq/L (3.5-5.1); Protein, Total 7.4 g/dL (6.4-8.2)
[2024-07-30 08:44] LABS: Absolute Eosinophils 0.1 K/uL (0-0.5); Absolute Lymphocytes (CBC) 1.1 K/uL (0.7-4.9); Absolute Monocytes 0.3 K/uL (0.1-1.3); Absolute Neutrophil 2.9 K/uL (1.8-8.0); Basophils % 0.7 % (0-1.3); Eosinophils % 1.9 % (0-4.4); Hemoglobin 16.3 g/dL (13.6-17.9); MCH 31.5 pg (27.0-35.0); MCHC 34.6 g/dL (32.0-36.0); MCV 90.8 fL (80-100); MPV 7.8 fL (7.6-11.3); Monocytes % 7.1 % (3.3-12.3); Neutrophils % 65.3 % (41.7-73.7); Nucleated Red Blood Cells % 0.1 % (0-0); Platelets 283 thou/uL (152-406); RBC Red Blood Cell Count 5.17 M/uL (4.33-5.43); Red Cell Distribution Width 13.4 % (12.1-15.2)
--- NOTE | 2024-07-30 08:49 | ER ---
Nurse's Notes [facility] Name: Jim Ballesteros Age: 49 yrs Sex: Male : 1975 Arrival Date: 07/30/2024 Time: 07:21 Bed 5 Private MD: Diagnosis: Calculus of ureter Presentation: 07/30 07:56 Chief complaint: Patient states: Left flank pain since this morning at 0400, hx of jl7 kidney stones. Coronavirus screen: At this time, the client does not indicate any symptoms associated with coronavirus-19. Ebola Screen: No symptoms or risks identified at this time. Initial Sepsis Screen: Does the patient meet any 2 criteria? No. Patient's initial sepsis screen is negative. Does the patient have a suspected source of infection? No. Patient's initial sepsis screen is negative. Risk Assessment: Do you want to hurt yourself or someone else? Patient reports no desire to harm self or others. Onset of symptoms was July 30, 2024. 07:56 Method Of Arrival: Ambulatory [facility] 07:56 Acuity: GUCCI 3 jl7 Triage Assessment: 08:06 General: Appears in no apparent distress. uncomfortable, Behavior is calm, cooperative, jl7 appropriate for age. Pain: Complains of pain in left flank Pain currently is 7 out of 10 on a pain scale. GI: Patient currently denies diarrhea, nausea, vomiting. Historical: - Allergies: 08:05 No Known Allergies; jl7 - Home Meds: 08:05 None [Active]; jl7 - PMHx: 08:05 None; jl7 - PSHx: 08:05 None; jl7 - Immunization history:: Adult Immunizations up to date. - Infectious Disease History:: Denies. - Social history:: Smoking status: Patient denies any tobacco usage or history of. Screenin:32 [facility] ED Fall Risk Assessment (Adult) History of falling in the last 3 months, hb including since admission No falls in past 3 months (0 pts) Confusion or Disorientation No (0 pts) Intoxicated or Sedated No (0 pts) Impaired Gait No (0 pts) Mobility Assist Device Used No (0 pt) Altered Elimination No (0 pt) Score/Fall Risk Level 0 - 2 = Low Risk Oriented to surroundings, Maintained a safe environment, Educated pt \T\ family on fall prevention, incl call for assistance when getting out of bed. Abuse screen: Denies threats or abuse. Denies injuries from another. Nutritional screening: No deficits noted. Tuberculosis screening: No symptoms or risk factors identified. Assessment: 08:31 General: Appears in no apparent distress. Behavior is calm, cooperative. Pain: Pain hb currently is 7 out of 10 on a pain scale. Neuro: Level of Consciousness is awake, alert, obeys commands, Oriented to person, place, time, situation. Cardiovascular: Patient's skin is warm and dry. Respiratory: Respiratory effort is even, unlabored, Respiratory pattern is regular, agonal. GI: No signs and/or symptoms were reported involving the gastrointestinal system. : Denies left flank pain, urinary frequency. EENT: No signs and/or symptoms were reported regarding the EENT system. Derm: Skin is pink, warm \T\ dry. Musculoskeletal: No signs and/or symptoms reported regarding the musculoskeletal system. 09:00 Reassessment: Patient appears in no apparent distress at this time. Patient and/or hb family updated on plan of care and expected duration. Pain level reassessed. Patient is alert, oriented x 3, equal unlabored respirations, skin warm/dry/pink. Patient states symptoms have improved. Vital Signs: 07:56 BP 155 / 108; Pulse 75; Resp 17; Temp 98.2; Pulse Ox 98% ; Weight 108.86 kg; Height 6 jl7 ft. 0 in. ; Pain 7/10; 09:00 BP 146 / 86; Pulse 88; Resp 16; Pulse Ox 99% on R/A; Pain 4/10; hb 07:56 Body Mass Index 32.55 (108.86 kg, 182.88 cm) jl7 07:56 Pain Scale: Adult jl7 09:00 Pain Scale: Adult hb ED Course: 07:24 Patient arrived in ED. im 07:42 Umberto Monahan MD is Attending Physician. ec2 08:05 Triage completed. jl7 08:06 CT Abd/Pelvis - Without Contrast In Process Unspecified. EDMS 08:06 Arm band placed on right wrist. jl7 08:14 Joanna Winchester, JAZMINE is Primary Nurse. hb 08:23 Urinalysis w/ reflexes Sent. hb 08:23 Lipase Sent. hb 08:23 CMP Sent. hb 08:23 CBC with Diff Sent. hb 08:26 Inserted saline lock: 20 gauge in right antecubital area, using aseptic technique. hb Blood collected. Flushed with 10 mL NS. 08:31 Urinalysis w/ reflexes Sent. hb 08:31 Lipase Sent. hb 08:31 CMP Sent. hb 08:31 CBC with Diff Sent. hb 08:32 Patient has correct armband on for positive identification. Provided Education on: use hb of call light, bathroom location, tests, result times. 09:00 No provider procedures requiring assistance completed. IV discontinued, intact, hb bleeding controlled, No redness/swelling at site. Pressure dressing applied. Administered Medications: 08:30 Drug: TORadol - Ketorolac IVP 15 mg IVP once Route: IVP; Site: right antecubital; hb 08:30 Drug: Ondansetron IVP 4 mg IVP once; over 2 minutes Route: IVP; Site: right antecubital;hb 08:30 Drug: morphine IVP or IV 4 mg IVP once over 4 mins Route: IVP; Infused Over: 4 mins; hb Site: right antecubital; Medication: 09:00 VIS not applicable for this client. hb Outcome: 08:47 Discharge ordered by . ec2 09:16 Discharged to home ambulatory, hb 09:16 Condition: stable 09:16 Discharge instructions given to patient, Instructed on discharge instructions, follow up and referral plans. medication usage, Demonstrated understanding of instructions, follow-up care, medications, Prescriptions given X 2, 09:16 Patient left the ED. hb Signatures: Dispatcher [employer] Joanna Kramer RN RN hb Leal, Jahala, RN RN jl7 Lillie Ellison Edwin, MD MD ec2
--- NOTE | 2024-07-30 08:49 | EDPHYS ---
Physician Documentation [facility] Name: Jim Ballesteros Age: 49 yrs Sex: Male : 1975 Arrival Date: 07/30/2024 Time: 07:21 Bed 5 Private MD: ED Physician Umberto Monahan HPI: 07/30 08:10 This 49 yrs old Male presents to ER via Ambulatory with complaints of ec2 Possible Kidney Stone. 08:10 Patient with history of kidney stone arrives today for kidney stone. Recent diagnosis ec2 approximately 2 weeks ago. Patient reports left-sided flank pain persisted. Reports no fevers or chills or nausea or vomiting, no significant hematuria notable. Has been taking tramadol for pain.. Historical: - Allergies: 08:05 No Known Allergies; jl7 - Home Meds: 08:05 None [Active]; jl7 - PMHx: 08:05 None; jl7 - PSHx: 08:05 None; jl7 - Immunization history:: Adult Immunizations up to date. - Infectious Disease History:: Denies. - Social history:: Smoking status: Patient denies any tobacco usage or history of. ROS: 08:11 Constitutional: as per hpi ec2 Exam: 08:11 Constitutional: GEN: NAD Head: atraumatic Eyes: EOMI Ears: External ears are ec2 normal. CV: regular rate LUNGS: no respiratory distress ABD: non-distended, mild left CVA TTP SKIN: no evidence of rashes MSK: no evidence of trauma Vital Signs: 07:56 BP 155 / 108; Pulse 75; Resp 17; Temp 98.2; Pulse Ox 98% ; Weight 108.86 kg; Height 6 jl7 ft. 0 in. ; Pain 7/10; 09:00 BP 146 / 86; Pulse 88; Resp 16; Pulse Ox 99% on R/A; Pain 4/10; hb 07:56 Body Mass Index 32.55 (108.86 kg, 182.88 cm) jl7 07:56 Pain Scale: Adult jl7 09:00 Pain Scale: Adult hb MDM: 07:58 Medical Screening Exam initiated ec2 08:11 Data reviewed: vital signs, nurses notes. ED course: Patient arrives today for ec2 evaluation of left leg pain. Examination as above. Will obtain ureteral stone study, lab work and treat the patient's pain. Suspect migration of ureteral stone.. 08:47 ED course: Metabolic profile shows slight renal dysfunction, compared to external labs, ec2 appears similar. Will discharge home have the patient follow-up with his urologist [facility] in [facility]. Return precautions given.. 02 07:54 Order name: CBC with Diff; Complete Time: 08:47 ec2 07/30 07:54 Order name: CMP; Complete Time: 08:47 ec2 07/30 07:54 Order name: Lipase; Complete Time: 08:47 ec2 07/30 07:54 Order name: Urinalysis w/ reflexes; Complete Time: 08:47 ec2 07/30 07:54 Order name: CT Abd/Pelvis - Without Contrast; Complete Time: 08:37 ec2 07/30 07:54 Order name: IV Saline Lock; Complete Time: 08:22 ec2 07/30 07:54 Order name: Labs collected and sent; Complete Time: 08:22 ec2 Administered Medications: 08:30 Drug: TORadol - Ketorolac IVP 15 mg IVP once Route: IVP; Site: right antecubital; hb 08:30 Drug: Ondansetron IVP 4 mg IVP once; over 2 minutes Route: IVP; Site: right antecubital;hb 08:30 Drug: morphine IVP or IV 4 mg IVP once over 4 mins Route: IVP; Infused Over: 4 mins; hb Site: right antecubital; Disposition Summary: 07/30/24 08:47 Discharge Ordered Notes: Location: Home ec2 Condition: Stable ec2 Diagnosis - Calculus of ureter ec2 Followup: ec2 - With: Private Physician - When: - Reason: Re-evaluation by your physician Discharge Instructions: - Discharge Summary Sheet ec2 - Kidney Stones, [id number] ec2 Forms: - Work release form jl7 - Medication Reconciliation Form ec2 - Antibiotic Education ec2 - Prescription Opioid Use ec2 - Patient Portal Instructions ec2 - Leadership Thank You Letter ec2 Prescriptions: - acetaminophen-codeine 300-30 mg Oral tablet - take 1 tablet ORAL route every 8 hours as needed for pain; 25 tablet; Refills: ec2 0, Product Selection Permitted - tamsulosin 0.4 mg Oral capsule - take 1 capsule ORAL route daily; 14 capsule; Refills: 0, Product Selection ec2 Permitted Signatures: Dispatcher [employer] Joanna Kramer RN RN Parminder Sethi RN RN jl7 Umberto Monahan MD MD ec2
[2024-07-30 09:34] VITALS: TEMP 98.2
[2024-07-30 09:40] VITALS: BP 146/86; O2SAT 99
== END 2024-07-30 09:16 | disposition home or self-care (01) ==
LOC: ER 07:21
DX: N20.1 Calculus of ureter (principal); Z87.442 Personal history of urinary calculi
CPT/HCPCS: 85025; 81001; 36415; 83690; 80053; 74176; 96375; 96374; 99284; J2405